=== PATIENT | male | born 1955 | race African-American/Black ===

== ENCOUNTER → 2019-02-13 | Outpatient (CLI) | payer BC, OTHER ==
[~2019-02-13] MED LIST: ASPIRIN E.C. 8181 MG PO; COLACE 100100 MG/CAP PO; CRESTOR40 MG PO; DEPAKOTE ER 50500 MG PO; DOXYCYCLINE 10100 MG PO; HCTZ 25MG TAB25 MG PO; KLOR-CON 1010 MEQ PO; LOTENSIN40 MG PO; NAPROSYN500 MG PO; NEXIUM 40MG40 MG PO; NORCO 325 MG-51 TAB PO; NORVASC 5MG5 MG/TAB PO; SENOKOT S 50 MG1 TAB PO; TYLENOL EXTRA500 M1 PO; WELLBUTRIN XL150 MG PO; ZYLOPRIM 100MG100 MG PO
== END ==
LOC: COL.RAD 07:36
DX: R68.81 Early satiety (principal)
CPT/HCPCS: A9541